=== PATIENT | female | born 1945 | race Caucasian/White ===

== ENCOUNTER 2019-03-15 06:34 | Observation (INO) ==
[2019-03-15] MEDS ORDERED: *HR* Succinylcholine 200 MG/10 ML VIAL IVP ONE (07:11)
[2019-03-15] MEDS ORDERED: Dexamethasone 4 MG/ML VIAL ONE (07:11)
[2019-03-15] MEDS ORDERED: Lidocaine -MPF 2% 2 ML VIAL ONE (07:11)
[2019-03-15] MEDS ORDERED: Ondansetron 4 MG/2 ML VIAL ONE (07:11)
[2019-03-15] MEDS ORDERED: Lidocaine -MPF 4% 5 ML AMPUL ONE (07:11)
[2019-03-15] MEDS ORDERED: *HR* Propofol 200 MG/20 ML VIAL IVP ONE (07:12)
[2019-03-15] MEDS ORDERED: *HR* FentaNYL (PF) 100 MCG/2 ML VIAL ONE ×2 (07:12→09:16)
[2019-03-15] MEDS ORDERED: CeFAZolin Syr 2,000MG/20 ML 2,000 MG/20 ML SYRINGE IVPB ONE (07:21)
[2019-03-15] MEDS ORDERED: Ringers Solution, Lactated 1,000 ML IVC SCH ×2 (07:30→11:29)
[2019-03-15] MEDS ORDERED: MethylPREDNISolone Acet(DEPOT) 80 MG/ML VIAL ONE (07:31)
[2019-03-15] MEDS ORDERED: Bupivacaine/EPI 1:200k 0.5%PF 30 ML VIAL ONE (07:31)
--- NOTE | 2019-03-15 07:41 | History & Physical Report ---
Date of Encounter: 03/15/19 Time of Encounter: 07:41 24 Hour HP Update - Instructions Instructions: If the History and Physical is less than 30 days old and was completed prior to A.M. admission and or procedure and has NOT been updated on calendar day of procedure please complete this update prior to performing procedure. - Update Patient reports changes in Medical Condition: No Changes in examination, assessment, or condition: No Changes in Medication: No Preop tests/diagnostics Reviewed: Yes Surgery Remains Indicated: Yes Consent for Planned Operative Procedure(s) Verified: Yes - Pre-Operative Checklist Preoperative Checklist Indicated: No Prophylactic Antibiotic Ordered: Yes Is VTE Prophylaxis Indicated?: NO
[2019-03-15] MEDS ORDERED: ROPIVACAINE/PF/NS SYRINGE INTRAART ONE (07:47)
[2019-03-15] MEDS ORDERED: ROPIVACAINE HCL/PF 0.5% 30 ML VIAL ONE (07:47)
[2019-03-15] MEDS ORDERED: Ondansetron 4 MG/2 ML VIAL IVP ONE (07:54)
[2019-03-15] MEDS ORDERED: *HR* Promethazine 25 MG/ML VIAL IVP PRN (07:54)
[2019-03-15] MEDS ORDERED: *HR* OxyCODONE Immed Rel 5 MG TABLET PO PRN ×2 (07:54→11:29)
[2019-03-15] MEDS ORDERED: Albuterol 2.5 MG/3 ML NEBULIZER IH ONE ×2 (07:54→10:36)
[2019-03-15] MEDS ORDERED: *HR* HYDROmorphone (PF) 1 MG/ML SYRINGE IVP PRN (07:54)
[2019-03-15] MEDS ORDERED: Albuterol 2.5 MG/3 ML NEBULIZER ONE (07:56)
--- NOTE | 2019-03-15 07:59 | Anesthesia Evaluation PreOp ---
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 OBESITY) Anesthesia History: Past Anesthesia, Problems (STOPPED BREATHING DURING SX) Alcohol Use: none Drug use: marijuana Medications and Allergies Budesonide/Formoterol 80/4.5 [Symbicort 80/4.5] 0 gm IH BIDR 06/12/15 [History] Levothyroxine [Synthroid] 125 mcg PO 0630 06/12/15 [History] Metoprolol Succinate 50 mg PO DAILY 06/12/15 [History] OxyCODONE/APAP 10/325 [Percocet 10/325 MG] 1 each PO Q6HR PRN 06/12/15 [History] Pramipexole [Mirapex] 0.5 mg PO HS 06/12/15 [History] Famotidine [Pepcid] 20 mg PO BID 08/10/16 [History] Levocetirizine Dihydrochloride [Xyzal] 5 mg PO DAILY 08/10/16 [History] Albuterol Neb [Proventil Neb] 2.5 mg IH 11/18/17 [History] Fluticasone Propionate [Flovent Hfa] 11/18/17 [History] Guaifenesin/Dm/Pseudoephedrine [Capmist Dm Tablet] 1 each PO BID #20 tablet 11/18/17 [Rx] PredniSONE [Deltasone] 20 mg PO DAILY #12 tablet 11/18/17 [Rx] levoFLOXacin [Levaquin] 500 mg PO DAILY #10 tablet 11/18/17 [Rx] Allergy/AdvReac Type Severity Reaction Status Date / Time Sulfa (Sulfonamide Allergy Vomiting Verified 11/18/17 13:51 Antibiotics) - Meds/Allergy Pre-op Review Medications Reviewed: Yes Allergies Reviewed: Yes Beta Blockers on Current Med List: No Anesthesia Results - Labs Laboratory Tests 03/01/19 03/01/19 16:05 16:05 Hgb 14.8 Plt Count 254 Creatinine 0.88 Est GFR ( Amer) > 60 Anesthesia Exam Vital Signs/O2 Sat/Glucose, Most Recent Temp Pulse Resp BP Pulse Ox 97.9 F 57 18 128/82 95 03/15/19 07:48 03/15/19 07:48 03/15/19 07:48 03/15/19 07:48 03/15/19 07:48 Weight: 93 KG - BMI 35 NPO (# of Hours): 8 - HEENT Mallampati: IV (DIFFICULT INTUBATION, PROBABLY NEED ASLEEP FOB IF ETT) Denture Type: Upper: Complete, Lower: Complete Oral Opening: Less than or equal to 3 - Cardiac Rhythm: Regular - Pulmonary Breath Sounds: bilateral Clear - Additional Findings NON-HEALING OPEN WOUND OVER DISTAL RIGHT FIBULA GRAFT SITE Anesthesia Assess/Plan ASA Score: 3 Anesthetic Plan: General, Regional Nerve Block Monitoring Plan: Standard Monitors Recovery Plan: PACU
--- NOTE | 2019-03-15 08:29 | Anesthesia Procedures ---
Date of Encounter: 03/15/19 Time of Encounter: 08:15 Procedures: Anesthesia - Nerve Block Procedure Date: 03/15/19 Time: 08:15 Allergies/Adv Reactions: sulfa Pre-op Diagnosis: left shoulder arthritis Surgical Procedure: left shoulder scope Checklist: Correct Patient Identifier, Correct procedure, History checked Correct side: Left Blood Thinner: No Monitor Applied: EKG, BP, Pulse Oximetry Supplemental Oxygen via Nasal Cannula (L/min): 2 Sedation: Fentanyl (mcg): 100 Indication: Post Op Analgesia Pre-op Neuro Deficits: No Block Type: Supraclavicular (icb/scp) Catheter placed: No Sterile Technique: Yes Ultrasound used: Yes Anatomy identified: Yes Visual spread of Local: Yes Neuro Stimulation: Yes Nerve Stimulator Range: 0.2 - 0.4 mA Blood on Needle Aspiration: No Smooth Injection of Local: Yes Pain with Injection of Local: No Prep: Chlorhexadine Needle: 22 x 50 mm Stimuplex Local: Ropivacaine (0.5% with 8mg decadron (sc block) + icb/scp (ropi 0.25%) ) Volume (cc): 50 Number of Attempts: 1 Complications: None/effective block Vitals: Vital Signs - Last 8 Hours Temp Pulse Resp BP Pulse Ox 03/15/19 08:24 59 16 136/83 97 03/15/19 08:12 63 16 124/85 96 03/15/19 07:48 97.9 F 57 18 128/82 95 03/15/19 07:19 97.9 F 57 18 128/82 95 Intake and Output 03/14/19 03/15/19 03/15/19 23:59 07:59 15:59 Other: Weight 92.986 kg Patient Weight 03/15/19 23:59 Weight 92.986 kg
[2019-03-15] MEDS ORDERED: EPHEDrine 50 MG/ML VIAL ONE (08:53)
[2019-03-15] MEDS ORDERED: Ketorolac 30 MG/ML VIAL ONE (09:13)
--- NOTE | 2019-03-15 09:46 | Orthopedic Operative Note ---
Date of procedure: 03/15/19 Pre-op diagnosis: Left shoulder rotator cuff tear labral tear biceps tear Post-op diagnosis: same Procedure: Procedure: Left shoulder arthroscopy anterior superior labral repair, subacromial decompression, rotator cuff repair, open biceps tenodesis. Estimated blood loss: 20 cc Hardware: 2 Arthrex 2.9 push lock suture anchor, 4 4.75 swivel lock suture anchors, and biceps button 2 Rotium Bioresorbable Wick Cartilage surfaces: Glenoid: Normal Humeral Head: Normal Rotator cuff: Subscapularis: Normal Supraspinatus: torn Infraspinatus: Normal Exam Under anesthesia: Full range of motion and no effusion no instability Procedural Notes: Full-thickness rotator cuff tear, anterior superior labral tear and biceps tear. Operative Dication: The patient was brought to the operating room and placed on the operating room table. After general anesthesia was administered the operative shoulder was examined. The patient was then placed in the modified beachchair position and all pressure points were padded appropriately, and the head was stabilized in the neutral position. The operative extremity was prepped and draped in sterile surgical fashion. The patient received IV antibiotics prior skin incision. A standard posterior portal was established and the arthroscope was introduced into the shoulder without complication. A standard anterior portal was established through the rotator interval utilizing an outside in technique localizing with spinal needle. The outflow cannula was introduced without complication. Diagnostic arthroscopy was performed. The articular surface of the glenoid and the humeral head were evaluated no articular were identified. The anterior labrum, the superior labrum and the biceps tendon were evaluated. The patient had an anterior superior labral tear and a biceps tear. The biceps was released with an up-biting basket. Shaver was used to debride the tissue back to stable tissue The anterior superior labrum was repaired with 2 Arthrex labral tape passed around the anterior superior labrum with a crescent lasso and secured to the anterior superior glenoid rim with 2 2.9 push lock suture anchor. Evaluation of the subscapularis to supraspinatus and infraspinatus performed patient had a full-thickness tear supraspinatus tendon infraspinatus and subscap were within normal limits The arthroscope was then removed from the shoulder and introduced into the cisse bacromial space. The arthroscopic sheath was passed out the anterior portal and the anterior cannula was introduced into the subacromial space in a retrograde fashion. A standard lateral portal was established utilizing outside in technique. The ArthroCare ablator was introduced through the lateral portal, the CA ligament was released off the anterior undersurface of the acromiom, a preliminary acromioplasty was performed with the jessica through the lateral portal. The arthroscope was then removed from the posterior portal and introduced through the lateral portal. The ArthroCare ablator was introduced through posterior portal and the bursectomy was completed. Evaluation of the rotator cuff showed a rotator cuff tear. The bur was introduced through the posterior portal the acromioplasty was completed utilizing cutting block technique without complication. A superior accessory portal was established. A Cannula was introduced without complication. 2 4.75 Arthrex swivel lock suture anchor was placed in the tuberosity with fiber tape. Tapes were passed through the Rotium Bioresorbable Wick, to position the width between the tendon and the bone. Suture and tape were passed through the anterior portion of tear with a micro-lasso, the midportion of the tear with a curved lasso and the posterior portion of the tear with a crescent lasso. Suture and tape were then fixed to the lateral tuberosity with 2 4.75 swivel lock suture anchors. This accomplished the speed bridge repair. The repair was found to be secure. The arthroscope was removed from the shoulder and the shoulder was evacuated of fluid. The incisions were closed with interrupted 2-0 nylon suture. The shoulder was infiltrated with half percent Marcaine with epinephrine. Attention was then turned to the open biceps tenodesis. An incision was made over the anterior upper arm. The incision was made through the skin and subcutaneous tissue. Hemostasis was obtained with Bovie cautery. The inferior border of the pectoralis major was identified and retracted superior laterally. This exposed the long head of the biceps tendon. The tendon was delivered into the wound. It was resected approximately 1 cm proximal to the musculotendinous junction. It was tagged with #2 FiberWire suture. The biceps was then fixed to the humerus with the pec crosses the humerus with an Arthrex biceps button. This gave secure fixation. The wound was irrigated the fascia was closed with a running #1 PDS suture, the subcutaneous tissue closed with 0 Monocryl suture. The skin was closed with Dermabond. The patient was placed in a sterile dressing and neutral wedge. They were extubated transferred to recovery in stable condition Anesthesia: GETA Surgeon: Sanchez Trotter Was there an surgical assistant certified present: No Estimated blood loss (cc): 20 Condition: stable Disposition: PACU
[2019-03-15] MEDS ORDERED: Temazepam 15 MG CAPSULE PO PRN (11:29)
[2019-03-15] MEDS ORDERED: Sennosides 8.6 MG TABLET PO PRN (11:29)
[2019-03-15] MEDS ORDERED: CloNIDine Patch 0.1 MG PATCH (WEEKLY) TD SCH (11:29)
[2019-03-15] MEDS ORDERED: Ondansetron 4 MG/2 ML VIAL IVP PRN (11:29)
[2019-03-15] MEDS ORDERED: *HR* OxyCODONE/APAP 5/325 TABLET PO PRN (11:29)
[2019-03-15] MEDS ORDERED: traMADol 50 MG TABLET PO PRN (11:29)
[2019-03-15] MEDS ORDERED: MOM Conc 10 ML UD.LIQ PO PRN (11:29)
[2019-03-15] MEDS ORDERED: Albuterol 2.5 MG/3 ML NEBULIZER IH PRN (11:29)
--- NOTE | 2019-03-15 13:14 | Anesthesia Evaluation Post Op ---
Date of Encounter: 03/15/19 Time of Encounter: 10:55 - Discharge PostOp Status: Transfer Patient to floor (Patient's vital signs have been reviewed. Patient is stable postoperatively and has adequately recovered from anesthesia. Patient is determined to have stable airway patency and respiratory function including respiratory rate and oxygen saturation. Patient has a stable heart rate, blood pressure and adequate hydration. Patients mental status is acceptable. Patients temperature is appropriate. Pain and nausea are adequately controlled.)
[2019-03-15] MEDS: MOMETASONE FUROATE 100 mcg Inhaler IH SCH (22:36)
[2019-03-15] MEDS: Budesonide/Formoterol 160/4.5 1 PUFF INH IH SCH (22:36)
[2019-03-16 04:32] LABS: Hematocrit 36.5 % (35.3-44.9); Hemoglobin 11.9 g/dL (11.5-15.4)
[2019-03-16 04:40] LABS: BUN/Creatinine Ratio 27 (6-26); Blood Urea Nitrogen 18 mg/dL (8-23); Calcium 8.2 mg/dL (8.6-10.3); Carbon Dioxide 23 mEq/L (23-29); Chloride 108 mEq/L (98-107); Glucose 121 mg/dL (70-105); Osmolality,Calculated 289 (280-300); Potassium 4.1 mEq/L (3.5-5.1); Sodium 138 mEq/L (136-145); eGFR For Non-African Americans > 60 (> 60)
--- NOTE | 2019-03-16 06:46 | Orthopedics Progress Note ---
Date of Encounter: 03/16/19 Time of Encounter: 06:45 Subjective Interval history: Patient was seen this morning doing well without complaints. Afebrile vital signs stable. Operative extremity: Neurovascularly intact Dressing clean dry and intact Calves nontender Assessment and plan: Continue with postoperative care Discharged today Objective Vital signs: Vital Signs Temp Pulse Resp BP Pulse Ox 03/16/19 02:56 98.1 F 85 17 126/70 93 03/15/19 22:38 98.3 F 73 16 110/65 92 03/15/19 22:36 16 92 03/15/19 18:42 97.9 F 66 16 114/63 94 03/15/19 14:40 97.5 F L 65 16 109/70 93 03/15/19 12:00 98 F 74 18 121/65 93 03/15/19 11:37 93 03/15/19 11:36 98 F 73 18 112/72 90 03/15/19 11:09 97.3 F L 72 18 111/69 94 03/15/19 10:59 97.3 F L 70 18 117/55 93 03/15/19 10:49 71 18 113/54 96 03/15/19 10:39 76 18 122/80 92 03/15/19 10:29 97.0 F L 73 18 128/76 93 03/15/19 10:19 67 18 143/90 95 03/15/19 10:09 65 18 147/85 95 03/15/19 09:59 97.2 F L 62 18 145/85 94 03/15/19 08:24 59 16 136/83 97 03/15/19 08:12 63 16 124/85 96 03/15/19 07:48 97.9 F 57 18 128/82 95 03/15/19 07:19 97.9 F 57 18 128/82 95 Intake and Output 03/15/19 03/15/19 03/16/19 15:59 23:59 07:59 Intake Total 20 / 170 150 / 170 1631 / 1631 Output Total 20 / 20 Balance 0 / 150 150 / 150 1631 / 1631 Intake: IV Fluids 20 / 120 100 / 120 Ancef Syringe 2,000 MG/20 ML 2, 20 / 20 000 mg In 20 ml @ 200 mls/hr IVPB PREOP ONE Rx#:[id number] Ancef 2,000 MG In 0.9 % Sodium 100 / 100 Chloride 100 ML @ 200 mls/hr IVPB Q8HR MARIO Rx#:[id number] Oral 50 / 50 200 / 200 Other 1431 / 1431 Output: Estimated Blood Loss Other: # Voids 1 - Labs CBC & BMP: 03/16/19 03:28 03/16/19 03:28 Labs: Abnormal lab results Chloride 108 mEq/L (98-107) H 03/16/19 03:28 27 (6-26) H 03/16/19 03:28 Glucose 121 mg/dL (70-105) H 03/16/19 03:28 Calcium 8.2 mg/dL (8.6-10.3) L 03/16/19 03:28 - VTE Documentation of Mechanical Device: Venous foot pump, device Consult Discharge Plan - Plan Referrals: Osbaldo Kyle DO [Primary Care Provider] -
--- NOTE | 2019-03-16 06:46 | Discharge Summary ---
Outpatient Proc Discharge Plan - Plan Additional Instructions: Post Operative Shoulder Arthroscopy AFTER SURGERY General Expectations Swelling and discomfort in the shoulder for up to a week after surgery is typical A post-operative appointment will be set up with your provider within the 1st week of your surgery. Stitches will be removed within one (1) week of your surgery. You may need help with your daily activities, so it is a good idea to have family and friends prepared to help you. Eat a regular diet. Although some people feel much better right away, many people notice they are not back to normal for 4 weeks or more. The shoulder is stiff and sore for several weeks. Rest after your surgery. You may feel dizzy, lightheaded or sleepy for 12 to 24 hours after your operation. This is perfectly normal. Move slowly, and be especially careful on stairs. On the following day you can do those activities that you feel able to do. Wound Care Expect minimal bloody drainage on the surgical bandages. Keep bandages clean and dry. You may remove outer bandages after 24 hours. o Keep Steri-strips over the incisions. Keep them as dry as possible, and pat dry after showering. o If Steri-strips come off, cover incisions with band-aids and do not use antibiotic creams You may shower 24 hours after surgery. Do not scrub the incisions or submerge them under water for at least two weeks. Sling Use Duration of sling use will vary depending on the procedure and surgery typ e. o You may be in the sling for up to six (6) weeks. o Until you see your provider at the follow-up appointment, wear the sling at all times except when changing clothes, showering, Physical Therapy, or if advised by your Physician. o Feel free to adjust the sling at home to feel snug but not tight. You should be able to breathe freely. There will also be a strap over your shoulder you may adjust to keep your arm at a 90 degree angle. You do not want your hand hanging down towards the ground. This encourages swelling in the hand. o Your sling will be re-adjusted at your first post-operative appointment. Icing is most important in the first 72 hours after surgery Apply ice bags or use the Cryocuff device you will be given at the time of surgery. o Never apply ice directly contact to your skin. o You will be given a Cryocuff device at the time of surgery. Please be sure all the pieces are with you or in the package before leaving the hospital. Anesthesia - General and Regional General Anesthesia - It is not uncommon to have generalized aching and muscle soreness for 24 to 48 hours. A sore throat may also occur. Regional Interscalene Nerve Block - Your Anesthesiologist will discuss the utilization of this nerve block with you prior to surgery. This is performed to limit post-operative pain - you should experience little to no pain right after surgery. o Nerve blocks can last 12 to 48 hours after the surgery. o After the surgery, start to take your pain medication as prescribed, though not more than every four (4) hours, in anticipation of the nerve block wearing off. You may experience the inability to move your shoulder and hand, numbness, and swelling may feel different. If you experience severe or prolonged shortness of breath, please go to the emergency room. Pain Management After surgery: Do not wait until you are in a lot of pain before taking your prescribed pain medication. It takes 30-45 minutes for the medication to take effect. Pain tends to be worse at night, affecting sleep. o Lying down may increase discomfort. o Try sleeping in a recliner, or propped up with multiple pillows in bed - A pillow placed behind your elbow may help. Narcotic Medication Protocol o Strong oral narcotic pain medications are typically prescribed for the first few days after surgery. Use only as directed. o Common side effects include nausea, dizziness, urinary retention, and constipation. If any of these are occurring to an uncomfortable level, decrease the amount of pain medication you are taking or stop taking it entirely. A stool softener may be helpful for constipation while taking pain medications. This is an [id number] product, such as Colace or Miralax. o If you have an adverse reaction to the pain medication prescribed, please bring in your medicine bottle with you to your 1st appointment. Call our office at if you do not tolerate the medication well. o Take your pain medication with food. Do not combine with alcoholic beverages. o Do not operate machinery or a vehicle while taking pain medications. Other Medications o Do not take Tylenol (Acetaminophen) in combination with pain medications that include these same substances. You may find the contents of the pain medication on the bottle of your prescription. o You may take anti-inflammatory medication (Motrin [Ibuprofen], Aleve [Naproxen], Celebrex, Aspirin, etc) in conjunction with your pain medication if you can tolerate these medications. o After the surgery, you may resume your normal medications that you took prior to surgery. WHAT YOU CAN EXPECT IN THE 1ST MONTH Physical Therapy - this will be addressed at your first post-operative appointment. The type of procedure you have determines when you will start Physical Therapy and is managed on a [id number] basis. Rotator cuff repairs, shoulder stabilizations, and clavicular procedures: Therapy starts approx. 6 weeks after surgery. Other procedures: Therapy starts immediately after surgery. You should call your insurance company and therapy location ahead of time to learn allotted number of visits, financial expenses, and out of pocket costs. We are happy to provide you with a list of [place] locations. Driving - this will be addressed at your first post-operative appointment. 1. You must be completely off your pain medication. 2. You must be able to perform the necessary functions comfortably and confidently. This may take 1 month or longer. Working - this will be addressed at your first appointment - Restrictions are job related and can vary from 2-10 weeks. 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 An average recovery period typically lasts about three (3) to six (6) months. You should not participate in contact sports or do heavy lifting until released by your physician. *Any questions or concerns regarding your surgery, you may contact Nury Rossi PA-C* ([phone]. Option #3 *Please allow for 24-48 hours to receive a return phone call* If the case of an emergency, please call 911 or go to the closest Emergency Department Home Medications: Levothyroxine [Synthroid] 125 mcg PO 0630 06/12/15 [History] Albuterol Neb [Proventil Neb] 2.5 mg IH TID PRN 11/18/17 [History] Fluticasone Propionate [Flovent Hfa] 1 puff PO DAILY PRN 11/18/17 [History] Albuterol Sulfate [Ventolin Hfa] 2 puff PO Q4H PRN 03/15/19 [History] Budesonide/Formoterol 160/4.5 [Symbicort 160/4.5] 2 puff PO BID 03/15/19 [History] Celecoxib [Celebrex] 200 mg PO DAILY 03/15/19 [History] CloNIDine Patch [Catapres-Tts] 0.1 mg PO QWEEK 03/15/19 [History] Denosumab [Prolia (For Outpatient Infusion)] 60 mg IM [id number] 03/15/19 [History] Docusate Sodium [Colace] 100 mg PO BID 5 Days #10 capsule 03/15/19 [Rx] Duloxetine HCl [Cymbalta] 60 mg PO BID 03/15/19 [History] HYDROcodone/Acet 5/325 mg [[place] 5-325 mg] 1 tab PO Q6H PRN 5 Days #20 tab 03/15/19 [Rx] Levocetirizine Dihydrochloride [Allergy Relief (Xyzal)] 5 mg PO DAILY 03/15/19 [History] Metoprolol Succinate [Toprol Xl] 100 mg PO DAILY 03/15/19 [History] Montelukast [Singulair] 10 mg PO DAILY 03/15/19 [History] Pramipexole Di-HCl [Pramipexole Dihydrochloride] 0.5 mg PO BID 03/15/19 [History] Tramadol HCl [Ultram] 50 mg PO BID PRN 03/15/19 [History]
[2019-03-16 07:06] VITALS: BP 117/63
[2019-03-16] MEDS: Budesonide/Formoterol 160/4.5 1 PUFF INH IH SCH (08:29)
[2019-03-16] MEDS: MOMETASONE FUROATE 100 mcg Inhaler IH SCH (08:30)
[2019-03-16] MEDS ORDERED: Celecoxib 200 MG CAPSULE PO SCH (09:00)
[2019-03-16] MEDS ORDERED: Metoprolol XL (24 HR) Succ 50 MG TAB.ER.24H PO SCH (09:00)
--- NOTE | 2019-03-16 12:47 | Physician Discharge Referral ---
Home Health/Hosp Referral Info Transfer to: Home Health Attending Provider: Dr. Sanchez Trotter - Diagnosis (1) History of orthopedic surgery Priority: Primary Status: Acute (2) Hypothyroid Priority: Secondary Status: Chronic (3) NONA (obstructive sleep apnea) Priority: Secondary Status: Chronic (4) History of smoking Priority: Secondary Status: Chronic (5) Chronic ulcer of lower extremity Priority: Secondary Status: Chronic (6) History of cancer Priority: Secondary Status: Chronic (7) Asthma Status: Acute (8) Obesity (BMI 30-39.9) Priority: Secondary Status: Chronic - Respiratory Orders Smoking Cessation: Smoking cessation has been advised. For more information, call the [facility] Quit Line at 4-985-VHGD-NOW. - Dressing/Wound Care Site: left shoulder Type of Dressing/Treatments w/Frequency: Remove bulky dressing on POW#2 (03/17) Sutures with steri-strips to stay intact until POW#1 visit in office. Zipline. Patient is to leave in place until 14 days from day of surgery, then remove with rubbing alcohol. Leave open to air. Do not apply any creams, salves, or lotions for 4 weeks following zipline removal. - Diet/Nutrition Diet/Nutrition Orders: Regular - Activity Activity Orders: Up ad irwin, Ambulate, Chair Activity: List: NO SHOULDER MOTION. Remain in brace - remove for hygiene only Okay to perform elbow and wrist motion as tolerated NONweightbearing to operative extremity Patient must sleep in brace - Services Needed Following services are medically necessary services: Nursing, Home Health Aide, Physical Therapy, Occupational Therapy, Med Social Work - Transfer Medications Home Medications: Levothyroxine [Synthroid] 125 mcg PO 0630 06/12/15 [History] Albuterol Neb [Proventil Neb] 2.5 mg IH TID PRN 11/18/17 [History] Fluticasone Propionate [Flovent Hfa] 1 puff PO DAILY PRN 11/18/17 [History] Albuterol Sulfate [Ventolin Hfa] 2 puff PO Q4H PRN 03/15/19 [History] Budesonide/Formoterol 160/4.5 [Symbicort 160/4.5] 2 puff PO BID 03/15/19 [History] Celecoxib [Celebrex] 200 mg PO DAILY 03/15/19 [History] CloNIDine Patch [Catapres-Tts] 0.1 mg PO QWEEK 03/15/19 [History] Denosumab [Prolia (For Outpatient Infusion)] 60 mg IM [id number] 03/15/19 [History] Docusate Sodium [Colace] 100 mg PO BID 5 Days #10 capsule 03/15/19 [Rx] Duloxetine HCl [Cymbalta] 60 mg PO BID 03/15/19 [History] HYDROcodone/Acet 5/325 mg [[place] 5-325 mg] 1 tab PO Q6H PRN 5 Days #20 tab 03/15/19 [Rx] Levocetirizine Dihydrochloride [Allergy Relief (Xyzal)] 5 mg PO DAILY 03/15/19 [History] Metoprolol Succinate [Toprol Xl] 100 mg PO DAILY 03/15/19 [History] Montelukast [Singulair] 10 mg PO DAILY 03/15/19 [History] Pramipexole Di-HCl [Pramipexole Dihydrochloride] 0.5 mg PO BID 03/15/19 [History] Tramadol HCl [Ultram] 50 mg PO BID PRN 03/15/19 [History] Allergies/Adverse Reactions: Allergy/AdvReac Type Severity Reaction Status Date / Time Sulfa (Sulfonamide Allergy Vomiting Verified 03/15/19 09:04 Antibiotics) Certification: Further, I certify that my clinical findings support that this patient is homebound (i.e. absences from home require considerable and taxing effort and are for medical reasons or judaism services or infrequently or short duration when for other reasons) because: Homebound Reason: Post-surgery restriction and or conditions limit ability to leave home Attestation: My signature below is to certify that this patient is under my care and that I, or nurse practitioner, or a physician housekeeper/laundry assistant working with me, has a [id number] encounter with this patient.
== END 2019-03-16 11:21 | disposition home health service (06) ==
LOC: 3NENU 06:34 → SAMDAY 06:34
PROVIDERS: ADMIT Orthopaedic Surgery; ATTEND Orthopaedic Surgery